=== PATIENT | male | born 1980 | race Two or more races ===

== ENCOUNTER 2025-01-03 21:42 | Emergency (ER) | payer MEDICAID, SELFPAY ==
[2025-01-03 21:43] VITALS: BMI 40.7
[2025-01-03 22:15] VITALS: BP 132/82; PULSE 87; RESP 20; TEMP 37.4; O2SAT 96
--- NOTE | 2025-01-03 22:24 | EDNOTE_ITS ---
ED Abdominal Pain RME/HPI General Chief Complaint: Abdominal Pain Stated complaint: ABD PAIN Time seen by provider: 01/03/25 21:56 Arrival date/time: 01/03/25 21:42 Source: patient, RN notes reviewed and old records reviewed Mode of arrival: ambulatory Limitations: no limitations RME / HPI RME / HPI narrative: 44yom presents to ED for 4-day history of left-sided abdominal pain. Patient reports nausea and diarrhea. No fever, vomiting, blood in stool or urinary symptoms reported. No medications or treatments since onset. Related Data Home Medications ?Medication ?Instructions ?Recorded ?Confirmed acetaminophen 500 mg tablet 1,000 mg PO Q6H PRN Pain 0 10/16/22 10/17/22 Previous Rx's ?Medication ?Instructions ?Recorded cephalexin 500 mg capsule 500 mg PO Q8H #20 caps 10/17 Lactobacillus acidoph-L.bulgaricus 1 tab PO QDAY #30 t abs 01/04/25 1 million cell tablet (Floranex) dicyclomine 20 mg tablet 20 mg PO Q6HR PRN abdominal pain 01/04/25 #30 tabs ibuprofen 600 mg tablet 600 mg PO Q6H PRN pain #20 t abs 01/04/25 ondansetron 4 mg disintegrating 4 mg PO Q6H PRN nausea and 01/04/25 tablet vomiting #10 tabs Allergies Allergy/AdvReac Type Severity Reaction Status Date / Time No Known Allergies Allergy Verified 10/17/22 11:21 Review of Systems Review of Systems Systems Reviewed: All systems reviewed, normal except as documented Constitutional Constitutional: Denies chills and Denies fever(s) Gastrointestinal Gastrointestinal: Reports abdominal pain, Denies hematochezia, Reports loose stools, Denies melena, Reports nausea and Denies vomiting Genitourinary Genitourinary: Denies flank pain and Denies hematuria Past Medical History Past Medical History GASTROINTESTINAL: Positive Obesity ENDOCRINE: Positive Diabetes Mellitus Type 2 Surgical History OTHER SURGICAL HX: hernia repair, back surgery Social History SMOKING STATUS: Never smoker SUBSTANCE USE: does not use ALCOHOL: Never ED Exam General Limitations: Present no limitations General appearance: Present alert and in no apparent distress Head Head exam: Present atraumatic and normocephalic Eye Eye exam: Present normal appearance, PERRL and EOMI ENT ENT exam: Present normal exam and mucous membranes moist Neck Neck exam: Present normal inspection and full ROM Chest Chest inspection: Present normal inspection and symmetric chest wall rise Respiratory Respiratory exam: Present normal lung sounds bilaterally; Absent respiratory distress Cardiovascular Cardiovascular exam: Present regular rate and normal rhythm Abdominal Exam Abdominal exam: Present soft and tenderness (LLQ); Absent distention, guarding or rebound Extremities Exam Extremities exam: Present normal inspection and full ROM Back Exam Back exam: Absent CVA tenderness (R) or CVA tenderness (L) Neurological Exam Neurological exam: Present alert and oriented X3 Psychiatric Psychiatric exam: Present normal affect and normal mood Skin Skin exam: Present warm, dry, intact and normal color Course Quality Measures none Orders Category Date Time Status CT Screening NOW Care 01/03/25 22:[address] abdomen pelvis w con Stat Exams 01/03/25 22:25 Completed CBC Stat Lab 01/03/25 22:37 Completed CMP [Comprehensive Metabolic Panel] Stat Lab 01/03/25 22:37 Completed Lipase Stat Lab 01/03/25 22:37 Completed UA [Urinalysis] Stat Lab 01/03/25 22:48 Completed HYDROcodone*/APAP 7.5/325 [Edwards 7.5/325] Med 01/03/25 22:25 Discontinued 1 tab PO X1 ONE Ketorolac Inj [Toradol Inj] Med 01/03/25 22:25 Discontinued 30 mg IM X1 ONE Ondansetron Odt [Zofran Odt] Med 01/03/25 22:25 Discontinued 4 mg PO X1 ONE Vital Signs Vital signs: Vital Signs Temperature 99.4 F 01/03/25 22:15 Pulse Rate 87 01/03/25 22:15 Respiratory Rate 20 01/03/25 22:15 Blood Pressure 132/82 H 01/03/25 22:15 Pulse Oximetry (%) 96 01/03/25 22:15 Oxygen Delivery Method Room Air 01/03/25 22:15 Abdominal Pain MDM MDM Narrative MDM Narrative:: 44yom presents to ED for 4-day history of left-sided abdominal pain. Patient reports nausea and diarrhea. No fever, vomiting, blood in stool or urinary symptoms reported. No medications or treatments since onset. Patient reassesseed. Symptoms improved after medications administered. ED workup reassuring. Encouraged adequate fluids, symptomatic treatment prn. Stable for dc, RTED precautions given. Patient data External records reviewed:: [facility] previous records (06/04/22 ED visit for flu A) Clinical information provided by:: patient Social determinants that could affect healthcare access:: other (specify) (poor access to healthcare) Patient has the following chronic illnesses:: DM, obesity How is presenting disease/condition affected by chronic disease/condition?: uneffected by Evaluation data The following diagnostics were reviewed and interpreted by me:: lab results and radiology exam(s) Lab and/or radiology exams considered but not ordered:: none Interpretation Summary: No leukocytosis UA -leuks CT abd/pelvis: IMPRESSION: Abnormal small bowel loops in the left anterior abdomen, differential would include enteritis such as Crohn's disease, early small bowel obstruction, clinical correlation advised and follow-up recommended Dictated By: José Antonio Luciano MD Medications / Prescriptions Medications or Prescriptions considered but not ordered:: no antibiotics recommended at this time Medication administrations:: Medication Administration History Discontinued Medications Hydrocodone Bitart/Acetaminophen (Hydrocodone/Apap 7.5/325 Tablet) 1 tab PO X1 ONE Stop: 01/03/25 22:26 Last Admin: 01/03/25 22:53 Dose: 1 tab Documented By: JESSICA Ketorolac Tromethamine (Ketorolac Inj 60 Mg/2 Ml Vial) 30 mg IM X1 ONE Stop: 01/03/25 22:26 Last Admin: 01/03/25 22:52 Dose: 30 mg Documented By: JESSICA Ondansetron HCl (Ondansetron Odt 4 Mg Tabrap) 4 mg PO X1 ONE; Protocol Stop: 01/03/25 22:26 Last Admin: 01/03/25 22:51 Dose: 4 mg Documented By: JESSICA Above medications administered in ED Consultations Consultation(s) initiated? (list below): No Diagnosis Differential diagnosis abdominal pain: abdominal pain, acute appendicitis, calculus of kidney, constipation, diverticulitis and gastroenteritis Most likely diagnosis given after review of the tests above:: enteritis, LLQ abdominal pain Admission Indicated Admission indicated?: not indicated Admission Request Was there a request for admission?: No Disposition Plan Disposition Plan: Discharge Discharge Attestation Discharge Attestation: The patient and all family members were given an opportunity to ask questions and understood the discharge instructions. Discharge instructions specifically effects, indications for sooner follow up or return to the emergency department, and the expected course of current diagnosis. Patient condition: Stable Discharge Plan Plan Patient Disposition: HOME (Self Care) Patient condition on transfer: Stable Prescriptions/Referrals Prescriptions/Med Rec: New ondansetron 4 mg tablet,disintegrating 4 mg PO Q6H PRN (Reason: nausea and vomiting) Qty: 10 0RF dicyclomine 20 mg tablet 20 mg PO Q6HR PRN (Reason: abdominal pain) Qty: 30 0RF Lactobacillus acidoph-L.bulgar [Floranex] 1 million cell tablet 1 tab PO QDAY Qty: 30 0RF ibuprofen 600 mg tablet 600 mg PO Q6H PRN (Reason: pain) Qty: 20 0RF No Action acetaminophen 500 mg Tablet 1,000 mg PO Q6H PRN (Reason: Pain) cephalexin 500 mg capsule 500 mg PO Q8H Qty: 20 0RF Referrals: Bear Nolasco PA-C [Primary Care Provider] - In 1 week Problem List Clinical Impression: Abdominal pain, Enteritis, Diarrhea Patient/Caregiver Discharge Instructions Education Materials: ED Gastroenteritis, Noninfectious Print Language: Tuvaluan Stand Alone Forms: Kristie Award Info., Patient Portal Info Letter PA/SAMUEL Supervising Physician PA/[employer] Supervising Physician: Guy
--- NOTE | 2025-01-03 22:25 | XR_ITS ---
Examination: CT abdomen with intravenous contrast CT pelvis with intravenous contrast 2-D coronal reconstructions 2-D sagittal reconstructions Date and time of exam:January 04, 2025, 0036 hours INDICATIONS: Onset left lower abdominal pain today. CTDI: vol (mGy) 21. DLP: (mGycm) 1551. Technique: Multiple axial sections of the abdomen and pelvis have been obtained. 64 slice high-resolution scanner used. 3 mm axial sections have been obtained, post intravenous injection 60 cc Isovue 370. 2-D sagittal, coronal reconstructions obtained. Low dose protocols were performed. One or more of the following dose reduction techniques were used; automated exposure control, adjustment of the mA and/or KV according to patient size, use of iterative reconstruction technique. Findings: No focal liver or splenic lesions No gallstones No pancreatic or adrenal mass No renal or ureteral calculi, no hydronephrosis Fluid distended small bowel loops in the left abdomen with wall thickening of the bowel loops No diverticulitis Contracted urinary bladder Moderate osteopenia IMPRESSION: Abnormal small bowel loops in the left anterior abdomen, differential would include enteritis such as Crohn's disease, early small bowel obstruction, clinical correlation advised and follow-up recommended
[2025-01-03] MEDS: ONDANSETRON ODT 4 MG TABRAP PO (22:51)
[2025-01-03 22:52] LABS: Collection Type, Urine Clean Catch
[2025-01-03] MEDS: KETOROLAC INJ 60 MG/2 ML VIAL 30 MG IM (22:52)
[2025-01-03] MEDS: HYDROcodone/APAP 7.5/325 TABLET 1 TAB PO (22:53)
[2025-01-03 22:58] LABS: Basophils % (Auto) 1 % (0-2.5); Eosinophils # (Auto) 0.1 Thou/mm3 (0.0-0.5); Eosinophils % (Auto) 2 % (0-10); Hematocrit 47.4 % (41.0-53.0); Hemoglobin 15.8 g/dL (13.5-16.0); Immature Granulocytes % (Auto) 1 % (0-0); Immature Granulocytes Auto 0.04 Thou/mm3 (0.00-0.00); Lymphocytes # (Auto) 3.1 Thou/mm3 (1.0-4.8); Lymphocytes % (Auto) 41 % (10-50); Mean Corpuscular HGB Conc 33.3 g/dl (31.0-37.0); Mean Corpuscular Volume 81 fL (80-100); Monocytes # (Auto) 0.9 Thou/mm3 (0.0-0.8); Monocytes % (Auto) 12 % (0-12); Neutrophils # (Auto) 3.3 Thou/mm3 (1.8-7.7); Neutrophils % (Auto) 44 % (37-80); Nucleated Red Blood Cell % 0 /100 WBC (0); Platelet Count 309 Thou/mm3 (140-440); RDW Standard Deviation 39.4 fL (35.1-43.9); Red Blood Count 5.85 Miln/mm3 (4.50-5.90); White Blood Count 7.5 Thou/mm3 (3.8-10.6)
[2025-01-03 23:01] LABS: Bilirubin,Urine Negative (Negative); Blood,Urine Negative (Negative); Budding Yeast,Urine Present; Clarity,Urine Clear (Clear/Hazy); Color,Urine Yellow (Lt Yel-Yel); Glucose, Urine 4+ (Negative); Ketones,Urine Negative (Negative); Leukocyte Esterase,Urine Negative (Negative); Nitrite,Urine Negative (Negative); Protein,Urine Trace (Neg - Trace); RBC,Urine 8 /hpf (0-3); Squamous Epithelial Cell,Urine 8 /hpf (0-5); WBC,Urine 4 /hpf (0-5)
[2025-01-03 23:16] LABS: Specific Gravity,Urine 1.025 (1.001-1.035)
[2025-01-03 23:20] LABS: Alanine Aminotransferase 53 U/L (10-49); Albumin, Serum 4.4 gm/dL (3.5-5.0); Albumin/Globulin Ratio 2.2 (1.2-2.2); Alkaline Phosphatase 118 U/L (46-116); Aspartate Amino Transferase 19 U/L (0-34); BUN/Creatinine Ratio 9 Ratio (12-20); Bilirubin,Total 0.6 mg/dL (0.3-1.2); Blood Urea Nitrogen 7 mg/dL (9-23); Calcium 9.5 mg/dL (8.3-10.6); Calcium (Corrected) 9.5 mg/dL (8.5-10.1); Carbon Dioxide 25.7 mMol/L (20.0-31.0); Creatinine (Component) 0.8 mg/dL (0.6-1.3); Estimated Creatinine Clearance 143.2 mL/min (>60); Glucose 287 mg/dL (74-106); Lipase 27 U/L (12-53); Total Protein 6.4 gm/dL (5.7-8.2); eGFR > 60 See Note
[2025-01-03 23:23] LABS: Anion Gap 7 (7-16); Chloride 104 mMol/L (98-107); Osmolality,Calculated 281 (275-295); Potassium 3.7 mMol/L (3.4-5.1); Sodium 137 mMol/L (136-145)
--- NOTE | 2025-01-04 02:08 | PRELIM_ITS ---
CT scan of the abdomen and pelvis with intravenous contrast (axial sections with sagittal and coronal reformats) January 04, 2025 0036 hours Clinical History: Left lower quadrant pain, diarrhea x 4 days. Reference is made to the prior report dated December 23, 2021. Findings: Fatty infiltration of the liver is noted. Dependent hyperdensity is identified within the gallbladder, which may represent sludge. The pancreas, spleen, kidneys and adrenals are unremarkable. No evidence of bowel obstruction. A moderate amount of fecal material is present in the colon. The appendix is within normal limits (axial images 145- 160/334). There is no mesenteric or retroperitoneal adenopathy. There are fluid filled prominent small bowel loops with mild wall thickening and mucosal enhancement. No evidence of diverticulitis. The urinary bladder is partially distended and shows mild wall thickening; possibility of cystitis cannot be excluded. There is no free fluid or free air. Degenerative changes are identified in the spine. Bibasilar dependent atelectasis is present. Please note that evaluation of bowel loops is limited due to absence of oral contrast. Impression: 1. Fluid filled small bowel loops as described; possibility of enteritis cannot be excluded. 2. No evidence of diverticulitis, bowel obstruction, free air or loculated abscess. 3. Partially distended urinary bladder with mild wall thickening; possibility of cystitis cannot be excluded. 4. Other findings as described above. Suggest clinical correlation and follow up accordingly. Report Electronically Signed By: Donn Murillo 01/04/2025 2:07:59 AM [EST]
[2025-01-04 02:50] VITALS: RESP 16
== END 2025-01-04 02:51 | disposition home or self-care (01) ==
PROVIDERS: Physician Assistant; Emergency Provider Emergency Medicine; PCP Physician Assistant Medical
DX: K52.9 Noninfective gastroenteritis and colitis, unspecified (principal); N32.89 Other specified disorders of bladder
CPT/HCPCS: 36415; 74177; 80053; 81001; 83690; 85025; 96372; 99285; A4649; J1885; Q0162; Q9967; A9270